=== PATIENT | male | born 2000 | race African-American/Black ===

== ENCOUNTER 2025-05-02 10:05 | Emergency (ER) | payer MEDICAID ==
[~2025-05-02] VITALS: Ht 182.9 cm; Wt 80.7 kg
[2025-05-02 10:08] VITALS: TEMP 36.8; O2SAT 98
[2025-05-02] MEDS: KETOROLAC 30MG/ML VIAL IM ONE (10:46)
[2025-05-02] MEDS ORDERED: KETO10TA2 MT (11:11)
[2025-05-02 12:16] VITALS: BP 119/62; PULSE 55; RESP 16; O2SAT 100
== END 2025-05-02 12:20 | disposition home or self-care (01) ==
LOC: ER 10:05
DX: S52.611B Displaced fracture of right ulna styloid process, initial encounter for open fracture type I or II (principal); X50.9XXA Other and unspecified overexertion or strenuous movements or postures, initial encounter; Y93.89 Activity, other specified; Y92.89 Other specified places as the place of occurrence of the external cause; Y99.8 Other external cause status
CPT/HCPCS: 73110; 29125; 96372; 99283; J1885; Z7610; A4606

== ENCOUNTER 2025-05-30 14:18 | Emergency (ER) | payer MEDICAID ==
[~2025-05-30] VITALS: Ht 182.9 cm; Wt 79.0 kg
[~2025-05-30 14:18] MED LIST: KETO10TA2 MT
[2025-05-30 14:20] VITALS: O2SAT 99
[2025-05-30 14:28] VITALS: BP 122/79; PULSE 50; RESP 16; TEMP 36.9; O2SAT 100
== END 2025-05-30 15:52 | disposition left against medical advice (07) ==
LOC: ER 14:18
DX: Z00.8 Encounter for other general examination (principal); Z53.21 Procedure and treatment not carried out due to patient leaving prior to being seen by health care provider